=== PATIENT | male | born 1965 | race Caucasian/White ===

== ENCOUNTER 2017-11-13 12:47 | Emergency (ER) | payer OTHER ==
[~2017-11-13] VITALS: Ht 190.5 cm; Wt 138.3 kg
[~2017-11-13 12:47] MED LIST: AMOXICILLIN500 M3 PO; BACTRIM DS TAB1 EACH PO; BENICAR20 MG PO; BENICAR40 M1 PO; NASONEX0.05 MG/Ac NASB; PREVACID15 MG PO; ZOFRAN ODT4 MG SL
[2017-11-13 14:00] LABS: ABSOLUTE BASOPHIL COUNT 0 /CUMM (0.0-0.2); ABSOLUTE EOSINOPHIL COUNT 0.2 /CUMM (0.0-0.7); ABSOLUTE GRANULOCYTE CT 4.3 /CUMM (1.4-6.5); ABSOLUTE LYMPH COUNT 1.8 /CUMM (1.2-3.4); ABSOLUTE MONOCYTE COUNT 0.6 /CUMM (0.10-0.60); BASOPHIL % 0.2 % (0.0-2.0); EOSINOPHIL % 2.2 % (0-5); GRANULOCYTE % 62.7 % (42.2-75.2); HEMATOCRIT 47.6 % (42-52); MEAN CORPUSCULAR HGB 30.1 PG (27.0-31.0); MEAN CORPUSCULAR VOLUME 88.8 FL (80.0-94.0); MEAN PLATELET VOLUME 6.9 FL (7.4-10.4); PLATELET COUNT 197 /CUMM (130-400); RBC DISTRIBUTION WIDTH 12.9 % (11.5-14.5); RED BLOOD CELL CT 5.36 /CUMM (4.70-6.10); WHITE BLOOD CELL COUNT 6.9 /CUMM (4.8-10.8)
--- NOTE | 2017-11-13 14:36 | ED GENERAL ADULT ---
History of Present Illness General Chief Complaint: General Adult Stated Complaint: LEFT SHOULDER INFECTED SURGICAL SITE Source: patient Exam Limitations: no limitations Vital Signs & Intake/Output Vital Signs & Intake/Output Vital Signs Date Time Temp Pulse Resp B/P B/P Pulse O2 O2 Flow FiO2 Mean Ox Delivery Rate 11/13 1701 98.4 95 18 142/86 96 Room Air 11/13 1535 98.5 85 20 133/91 94 Room Air 11/13 1257 97.3 113 20 154/103 96 Room Air Allergies Coded Allergies: No Known Allergies (11/13/17) Reconcile Medications Clindamycin HCl 300 MG CAPSULE 1 CAP PO TID wound infection Lansoprazole (Prevacid) 15 MG ECC 2 TAB PO DAILY GI (Reported) Olmesartan Medoxomil (Benicar) 40 MG TABLET 1 TAB PO DAILY HEART (Reported) Triage Note: PT TO ED ? INFECTION TO LEFT SHOULDER SURGICAL SITE. PT HAD ROTATOR CUFF SURGERY 6 WEEKS AGO. Triage Nurses Notes Reviewed? yes HPI: This is a 51-year-old male with history of hypertension, rotator cuff repair 6 weeks ago at [facility] for surgery with Dr. Jono Velasco, presents the emergency department with 1 day of worsening left shoulder pain with an episode of purulent discharge from the surgical site. Patient states that he was at a wedding last night, was not dancing or moving excessively but did have a few drinks, noticed that his shoulder was more painful than usual despite using his immobilizer. When he got home, he tried some range of motion exercises and found that the pain was somewhat improved. Overnight, the pain was again intensified and this morning, when pressing on the surgical site/scar, he was able to express a small amount of pus from the very edge of the incision site. This does not happen to him before. He denies any fever, chills, nausea, vomiting, headache, lightheadedness. He has been eating and drinking well. He otherwise has had no trauma or injuries recently. 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 Patient was told by the on-call orthopedic surgeon at Dr. Velasco's office to seek care at the emergency department for evaluation. Prior to my evaluation, patient has labs drawn. (Brice SARAH,Nestor) Past History Travel History Traveled to [place] past 21 day No Medical History Any Pertinent Medical History? none Neurological: NONE EENT: NONE Cardiovascular: hypertension Respiratory: NONE Gastrointestinal: ACID REFLUX Hepatic: NONE Renal: NONE Musculoskeletal: NONE Psychiatric: NONE Endocrine: NONE Blood Disorders: NONE Cancer(s): NONE ATHLETIC TRAINER/Reproductive: NONE Surgical History Surgical History: non-contributory Psychosocial History What is your primary language Nepali Tobacco Use: Never used ETOH Use: denies use Illicit Drug Use: denies illicit drug use Family History Hx Contributory? Yes (Nestor Narvaez MD) Review of Systems Review of Systems Constitutional: Reports: no symptoms. Musculoskeletal: Reports: see HPI. (Nestor Narvaez MD) Physical Exam Physical Exam General Appearance: well developed/nourished, no apparent distress, alert, comfortable, obese Comments: This is a well-appearing 51-year-old male, no acute distress, neurologically intact, benign cardio pulmonary exam, benign abdominal exam. Extremity exam is within normal limits with intact distal pulses. No diaphoresis, skin warm dry, mucous members moist. Patient has mild tenderness to palpation to the proximal aspect of the left shoulder incision which otherwise appears well-healed. With downward pressure, a small amount of purulent fluid is expressed from the proximal aspect of the surgical site. There is no warmth or erythema or surrounding skin changes otherwise. Range of motion is limited with no ability to internally and externally rotate the left shoulder. He is able to abduct, extend, flex the shoulder with significant limitation to range of motion. According to the patient, this is his baseline mobility. Core Measures ACS in differential dx? No CVA/TIA Diagnosis: No Sepsis Present: No Sepsis Focused Exam Completed? No (Nestor Narvaez MD) Progress Differential Diagnoses I considered the following diagnoses in my evaluation of the patient: Some concern for superficial skin infection, abscess formation, septic joint, osteomyelitis. Low suspicion for new acute fracture or dislocation. Low suspicion for acute metabolic derangement. Low suspicion for acute cardiopulmonary etiology of left shoulder pain given exam finding of purulent discharge from the wound. Plan of Care: Orders Procedure Date/time Status TRUNK AREA CULTURE 11/13 1424 Active LACTIC ACID 11/13 1301 Complete C-REACTIVE PROTEIN 11/13 1301 Complete CBC WITHOUT DIFFERENTIAL 11/13 1301 Complete BASIC METABOLIC PANEL 11/13 1301 Complete Laboratory Tests 11/13/17 1601: Lactic Acid Cancelled 11/13/17 1320: Anion Gap 10, Estimated GFR > 60, BUN/Creatinine Ratio 17.8, Glucose 177 H, Lactic Acid 1.6, Calcium 9.4, C-Reactive Prot, Quant 1.1 H, CBC w Diff NO MAN DIFF REQ, RBC 5.36, MCV 88.8, MCH 30.1, MCHC 34.0, RDW 12.9, MPV 6.9 L, Gran % 62.7, Lymphocytes % 26.6, Monocytes % 8.3, Eosinophils % 2.2, Basophils % 0.2, Absolute Granulocytes 4.3, Absolute Lymphocytes 1.8, Absolute Monocytes 0.6, Absolute Eosinophils 0.2, Absolute Basophils 0 Microbiology 11/14 1423 TRUNK: Culture & Sensitivity - RECD 11/14 1423 TRUNK: Gram Stain - RECD 11/14 1419 BODY FLUID: Body Fluid Culture - CAN Cancelled: OE 11/14 1419 BODY FLUID: Gram Stain - CAN Cancelled: OE In this 51-year-old male with history of recent shoulder surgery and now purulent discharge from the wound site, some concern for deep space infection versus septic joint, however patient is otherwise very well-appearing with minimal pain with ranging of the joint. C-reactive protein is mildly elevated to 1.1. There is no elevation to white count. We will pursue CT soft tissue to evaluate extent of infectious process, however patient may ultimately require evaluation by surgeon for washout if there is a high clinical suspicion for septic joint based on reassessment. Case is discussed at length with on-call orthopedic surgeon Dr. Valderrama. He states that the patient can be discharged home with p.o. antibiotics. Here, we will administer first dose of clindamycin, perform CT with contrast of the shoulder. He is well-appearing on reassessment, plan for discharge home with follow-up instructions and return precautions. CAT scan reveals no significant glenohumeral joint effusion or changes consistent with osteomyelitis, however exam is limited and patient would likely require aspiration and/or MRI for better characterization. In addition, the CAT scan does reveal a rim-enhancing collection to the subscapularis recess. For this, the patient is prescribed p.o. antibiotics and will follow up closely with Dr. Velasco. Ultimately, he may need drainage/I&D of this collection, at this time he is very well-appearing with a benign exam and no obvious drainable collection on physical exam. Patient is provided with CAT scan results in the disc of the images to show his orthopedic surgeon. He is advised to follow-up with his doctor as soon as possible. He is provided with return precautions and follow-up instructions. PATIENT: MARKUS GOTTI PRESENT AGE: 51 PATIENT ACCOUNT NO: [id number] : 63 LOCATION: [facility] ORDERING PHYSICIAN: Nestor Narvaez MD SERVICE DATE: 11/13/17 EXAM TYPE: CAT - CT UPPER EXT W IV CONTRAST EXAMINATION: CT UPPER EXTREMITY WITH CONTRAST, LEFT CLINICAL INFORMATION: Purulent discharge from surgical wound. Presumptive diagnosis of infection. COMPARISON: MRI scan of the left shoulder dated 05/19/2017. Left shoulder films dated 05/10/2017. TECHNIQUE: Multidetector volumetric CT scan of the left shoulder and proximal left arm was performed with thin section axial reconstructions and oblique coronal and sagittal reconstructions obtained after the administration of 95 and mL of intravenous Optiray 320. DLP: 783.3 by mGy-cm FINDINGS: The patient has undergone rotator cuff surgery with bone anchor seen in region of the greater tuberosity. Some surrounding mild cortical surface irregularity is seen within adjacent tiny bone fragment (series 2, image 173), most consistent with postoperative change. The glenohumeral joint remains intact and demonstrates mild degenerative change but is otherwise unremarkable. No significant glenohumeral joint effusion is seen. There appears to be resection of the distal clavicle with slight widening of the AC joint space. There may be some fluid or postoperative soft tissue edema and inflammation at the AC joint and surrounding the acromion and extending into the superolateral soft tissues to the overlying skin, likely corresponding to the site of purulent discharge and surgical incision. The AC joint is otherwise unremarkable with no evidence of cortical erosion or osteomyelitis seen. There is a moderate amount of fluid in the subscapularis recess, demonstrating mild peripheral rim enhancement and internal complexity (series 200, image 44) consistent with a inflamed or infected fluid collection. This likely communicates with the subacromial bursa. The included soft tissues of the left axilla, left upper arm, and left upper lung are unremarkable. Evaluation of the lungs is limited due to motion artifact. IMPRESSION: 1. Complex appearing peripherally rim enhancing fluid collection is seen in the subscapularis recess, possibly representing an inflammatory postoperative collection or infected fluid collection in the setting of purulent discharge from the wound. Evaluation on CT scan is limited. Consider further evaluation with MRI scan with and without contrast and/or fluid aspiration for further assessment. 2. Postoperative changes are seen at the acromioclavicular joint status post distal clavicle resection. Mild AC joint fluid and subacromial bursal fluid is seen, likely representing postoperative change. DICTATED BY: Sarah Bauer MD DATE/TIME DICTATED:11/13/171542 DRIER FEEDER:FERNANDA DATE/TIME TRANSCRIBED:11/13/171542 CONFIDENTIAL, DO NOT COPY WITHOUT APPROPRIATE AUTHORIZATION. <Electronically signed in Other Vendor System> SIGNED BY: Sarah Bauer MD 163 Initial ED EKG: none (Nestor Narvaez MD) Departure Departure Time of Disposition: 1642 Disposition: HOME OR SELF CARE Condition: Stable Clinical Impression Primary Impression: Wound infection after surgery Referrals: Unruly Diaz MD (PCP/Family) Additional Instructions: Thank you for coming to [facility] today. Today, I spoke with Dr. Valderrama who is a colleague of Dr. Velasco; he agrees with plan for oral antibiotics and close follow-up; please follow-up with Dr. Velasco on Wednesday for reassessment, bringing the results of today's CAT scan with you. Please take the antibiotics as prescribed. Clindamycin can sometimes cause diarrhea, which is sometimes severe. I recommend you take probiotics and/or yogurt for the next several weeks to help maintain healthy gut janice. Please return to the emergency department immediately if you develop any worsening pain to your left shoulder or increasing discharge or redness or heat or any other concerning symptoms such as fever, chills, nausea, vomiting. Departure Forms: Customer Survey General Discharge Information Prescriptions: Current Visit Scripts Clindamycin HCl 1 CAP PO TID #30 CAP (Nestor Narvaez MD) PA/HOT MILL OBSERVER Co-Sign Statement Statement: ED Attending supervision documentation- [] I saw and evaluated the patient. I have also reviewed all the pertinent lab results and diagnostic results. I agree with the findings and the plan of care as documented in the PA's/HOT MILL OBSERVER's documentation. [] I have reviewed the ED Record and agree with the PA's/HOT MILL OBSERVER's documentation. [] Additions or exceptions (if any) to the PAs/HOT MILL OBSERVER's note and plan are summarized below: [] Resident Co-Sign Statement Statement: ED Attending supervision documentation- [] I saw and evaluated the patient. I have also reviewed all the pertinent lab results and diagnostic results. I agree with the findings and the plan of care as documented in the Resident's documentation. [X] I have reviewed the ED Record and agree with the Resident's documentation. [] Additions or exceptions (if any) to the Resident's note and plan are summarized below: [] (Tim SARAH,Fredy Louise) Critical Care Note Critical Care Note Critical Care Time: non-applicable (Brice SARAH,Nestor)
[2017-11-13] MEDS ORDERED: CLINDAMYCIN HC300 M1 PO (15:31)
--- NOTE | 2017-11-13 16:37 | CT SCAN REPORT ---
EXAMINATION: CT UPPER EXTREMITY WITH CONTRAST, LEFT CLINICAL INFORMATION: Purulent discharge from surgical wound. Presumptive diagnosis of infection. COMPARISON: MRI scan of the left shoulder dated 05/19/2017. Left shoulder films dated 05/10/2017. TECHNIQUE: Multidetector volumetric CT scan of the left shoulder and proximal left arm was performed with thin section axial reconstructions and oblique coronal and sagittal reconstructions obtained after the administration of 95 and mL of intravenous Optiray 320. DLP: 783.3 by mGy-cm FINDINGS: The patient has undergone rotator cuff surgery with bone anchor seen in region of the greater tuberosity. Some surrounding mild cortical surface irregularity is seen within adjacent tiny bone fragment (series 2, image 173), most consistent with postoperative change. The glenohumeral joint remains intact and demonstrates mild degenerative change but is otherwise unremarkable. No significant glenohumeral joint effusion is seen. There appears to be resection of the distal clavicle with slight widening of the AC joint space. There may be some fluid or postoperative soft tissue edema and inflammation at the AC joint and surrounding the acromion and extending into the superolateral soft tissues to the overlying skin, likely corresponding to the site of purulent discharge and surgical incision. The AC joint is otherwise unremarkable with no evidence of cortical erosion or osteomyelitis seen. There is a moderate amount of fluid in the subscapularis recess, demonstrating mild peripheral rim enhancement and internal complexity (series 200, image 44) consistent with a inflamed or infected fluid collection. This likely communicates with the subacromial bursa. The included soft tissues of the left axilla, left upper arm, and left upper lung are unremarkable. Evaluation of the lungs is limited due to motion artifact. IMPRESSION: 1. Complex appearing peripherally rim enhancing fluid collection is seen in the subscapularis recess, possibly representing an inflammatory postoperative collection or infected fluid collection in the setting of purulent discharge from the wound. Evaluation on CT scan is limited. Consider further evaluation with MRI scan with and without contrast and/or fluid aspiration for further assessment. 2. Postoperative changes are seen at the acromioclavicular joint status post distal clavicle resection. Mild AC joint fluid and subacromial bursal fluid is seen, likely representing postoperative change.
[2017-11-13 17:01] VITALS: BP 142/86
== END 2017-11-13 17:06 ==
LOC: ERH 12:47
PROVIDERS: Physician Assistant Medical
DX: T81.4XXA Infection following a procedure, initial encounter (principal)
CPT/HCPCS: 87075; 87070; 87147